=== PATIENT | female | born 1970 | race American Indian/Alaskan Native ===

== ENCOUNTER 2018-03-28 06:14 | Day surgery (SDC) | payer MEDICARE, MEDICAID ==
[2018-03-28] MEDS ORDERED: Absorbable Gelatin Sponge Size 100 ONE (07:21)
[2018-03-28] MEDS ORDERED: Bupivacaine 0.25% Inj(30mL) ONE (07:21)
[2018-03-28] MEDS ORDERED: Propofol 10 mg/ml Inj (20 ML) ONE (07:34)
[2018-03-28] MEDS ORDERED: Lidocaine 1% Inj (20ml) ONE (07:36)
[2018-03-28] MEDS ORDERED: CeFAZolin 1 gm in NS 100ml IVPB ONE (08:10)
[2018-03-28 08:17] VITALS: BMI 32.5
[2018-03-28] MEDS ORDERED: Sevoflurane - Inhalation Anesthetic Liq (250 ml) ONE (08:57)
[2018-03-28] MEDS ORDERED: Bupivacaine-Epi 0.25%-1:200,000 PF Inj IJ ONE (09:15)
[2018-03-28] MEDS ORDERED: Bupivacaine Liposomal Inj 20 ml ONE (09:17)
[2018-03-28] MEDS ORDERED: Bupivacaine Liposomal Inj 20 ml INJ ONE (09:24)
[2018-03-28] MEDS ORDERED: HYDROmorphone 0.5 mg/0.5 ml ISec IVP PRN (09:41)
--- NOTE | 2018-03-28 09:43 | PCM.SURG1 ---
Surgeon's Initial Post Op Note - Surgeon's Notes Surgeon: Dr. Alvarenga Test Engineer: Dr. West PGY3 Type of Anesthesia: General LMA Anesthesia Administered By: Dr. Zhu Pre-Operative Diagnosis: External Hemorrhoids, Internal Hemorrhoids Operative Findings: See Operative Dictation Post-Operative Diagnosis: Internal And External hemorrhoids Operation Performed: External and extensive internal hemorrhoidectomy, rigid proctosigmoidoscopy, exam under anesthesia Specimen/Specimens Removed: Hemorrhoidal tissue Estimated Blood Loss: EBL {In ML}: 10 Blood Products Given: N/A Drains Used: No Drains Post-Op Condition: Good Date of Surgery/Procedure: 03/28/18 Time of Surgery/Procedure: 09:44
[2018-03-28] MEDS ORDERED: [UNRECOGNIZED DRUG - OTHER] TP SCH (10:00)
[2018-03-28] MEDS ORDERED: DICLOFENAC SODIUM 100 GM TP SCH (10:00)
[2018-03-28] MEDS ORDERED: VIT E TP SCH (10:00)
[2018-03-28 10:56] VITALS: RESP 20; TEMP 97.8
--- NOTE | 2018-03-28 12:42 | OP ---
Copied To: Sanchez Alvarenga MD Attending MD: Sanchez Alvarenga MD PROCEDURE DATE: 03/28/2018 PREOPERATIVE DIAGNOSES: Extensive internal and external hemorrhoids, and rectal pain. POSTOPERATIVE DIAGNOSES: Extensive internal and external hemorrhoids, and rectal pain. PROCEDURES PERFORMED: 1. Rigid proctosigmoidoscopy up to 20 cm. 2. Extensive internal and external hemorrhoidectomy. SURGEON: Sanchez Alvarenga MD ORDER ENTRY: ANESTHESIOLOGIST: Dr. Zhu. ANESTHESIA: General endotracheal anesthesia. ESTIMATED BLOOD LOSS: Minimal. SPECIMENS: Internal and external hemorrhoids. DESCRIPTION OF PROCEDURE: Patient is a 48-year-old female with history of rectal pain and discomfort, with occasional bleeding. The patient was seen in the office and scheduled for the hemorrhoidectomy. Patient was brought to the operating room and placed on the operative table in the supine position. Patient was connected to EKG, blood pressure and pulse oximetry monitors. Patient then underwent general endotracheal anesthesia, and was prepped and draped in the usual sterile fashion. First, standard time-out procedure took place when everybody in the room agreed as to the patient's identity, diagnoses, and procedure to be performed. The operative course and the postoperative management was discussed with the OR team. First, a digital exam of the rectum was performed showing presence of internal and external hemorrhoids, and no other abnormalities palpable. The sphincter itself appeared to be fairly loose. I then proceeded with rigid sigmoidoscopy up to 20 cm. There was no significant lesions found in the rectum or the sigmoid colon. We then proceeded with hemorrhoidectomy. First, a half-rod retractor was placed, and the 8 o'clock position hemorrhoid was elevated with triangular clamp and ligated at its base. It was then excised with cautery and the mucosal edges were closed using 2-0 chromic stitch in a running locking fashion. Both the internal and external components of this hemorrhoid was removed. Next, a small hemorrhoid adjacent to it was also ligated with 2-0 chromic without excising it. Next, our attention was turned to the 5 o'clock position where another hemorrhoid was noted, and in the similar fashion was resected together with the external portion of the hemorrhoid and ligated the edges of the mucosa with 2-0 chromic stitch in a running locking fashion. Finally, we turned to the last hemorrhoid which was located at about 12 o'clock position, slightly off to the right, with ligating the base of that hemorrhoid and excising it, and ligating the edges of the fascia together with the external portion of the hemorrhoid. Once this was completed, the area was infiltrated with Marcaine and Exparel. There was excellent hemostasis. A Gelfoam packing was placed into the anal canal and sterile dressing was applied on top. The patient tolerated the procedure well and with no complications. Patient was awakened and transferred to the recovery room for further observation. Sanchez Alvarenga MD
[2018-03-28 14:21] VITALS: BP 125/76; PULSE 88; O2SAT 96
[2018-03-31] MEDS ORDERED: Ergocalciferol 50,000 Intl Units Cap PO SCH (10:00)
== END 2018-03-28 14:20 | disposition home or self-care (01) ==
LOC: SDS 06:14
PROVIDERS: ATTEND General Practice
DX: K64.4 Residual hemorrhoidal skin tags (principal); K64.8 Other hemorrhoids
CPT/HCPCS: 46260; 45300; 88304; J0690; J1170; J2405; J2704; J2765; J3010; J7120

== ENCOUNTER 2018-11-12 07:05 | Emergency (ER) | payer OTHER ==
[2018-11-12 07:09] VITALS: BMI 35.3
[2018-11-12 08:03] LABS: BASO # 0.03 K/mm3 (0.0-2.0); BASO % 0.5 % (0.0-3.0); EOS # 0.1 (0.0-0.7); HEMOGLOBIN 12.8 g/dL (12.0-16.0); LYMPH # 2.4 (1.2-3.4); LYMPH % 36.9 % (22.0-35.0); MEAN CELL VOLUME 95.5 fl (80.0-105.0); MEAN CORPUSCULAR HEMOGLOBIN 30.1 pg (25.0-35.0); MEAN CORPUSCULAR HGB CONC 31.5 g/dl (31.0-37.0); MEAN PLATELET VOLUME 8.9 fl (7.0-11.0); MONO # 0.3 (0.1-0.6); MONO % 4.9 % (1.0-6.0); RBC 4.25 10^6/uL (3.5-6.1); RED CELL DISTRIBUTION WIDTH 14.7 % (11.5-14.5); WHITE BLOOD COUNT 6.6 10^3/uL (4.5-11.0)
--- NOTE | 2018-11-12 08:12 | ED PDOC ---
Arrival/HPI - General Chief Complaint: Shortness Of Breath Historian: Patient - History of Present Illness Narrative History of Present Illness (Text): 11/12/18 07:31 Verenice Alcantara is a 48 year old female, with a past medical history of brain tumor removal, rheumatoid arthritis, osteoarthritis, childhood leukemia, diverticulosis, lupus, and neuropathy, who presents to the emergency department complaining of shortness of breath and trouble swallowing since early this morning. Patient informs waking up at 5 AM to smoke a cigarette when she felt short of breath. Patient appreciates one episode of non radiating sharp middle chest pain while in the emergency department. Patient used albuterol inhaler with improvement. Patient also informs of cold-like symptoms two weeks ago. Patient noted productive cough, wheezing, headache, and chills which have since resolved. Patient was seen by PMD who prescribed nebulizer treatment and albuterol inhaler. Patient denies any fevers, chills, headache, dizziness, dyspnea on exertion, cough, diaphoresis, abdominal pain, nausea, vomiting, diarrhea, back pain, neck pain, or any other complaint. Time/Duration: 1-3 hours Symptom Onset: Sudden Symptom Course: Unchanged Activities at Onset: Light Context: Home Past Medical History - Provider Review Nursing Documentation Reviewed: Yes - Infectious Disease Hx of Infectious Diseases: None - Tetanus Immunization Tetanus Immunization: Unknown - Cardiac Hx Pacemaker: No - Pulmonary Hx Respiratory Disorders: Yes - Neurological Hx Paralysis: No - Endocrine/Metabolic Hx Hypothyroidism: Yes - Hematological/Oncological Hx Blood Transfusions: Yes (1981) Hx Blood Transfusion Reaction: No - Musculoskeletal/Rheumatological Hx Musculoskeletal Disorders: Yes (RA) - Psychiatric Hx Emotional Abuse: No Hx Physical Abuse: No Hx Substance Use: No - Past Surgical History Past Surgical History: No Previous - Surgical History Hx Section: Yes Hx Orthopedic Surgery: Yes (03/01/16) - Anesthesia Hx Anesthesia Reactions: No Hx Malignant Hyperthermia: No - Suicidal Assessment Feels Threatened In Home Enviroment: No Family/Social History - Physician Review Nursing Documentation Reviewed: Yes Family/Social History: Unknown Family HX Smoking Status: Heavy Smoker > 10 Cigarettes Daily Hx Alcohol Use: No Hx Substance Use: No Hx Substance Use Treatment: No Allergies/Home Meds Allergies/Adverse Reactions: Allergies acetaminophen [From Percocet] Allergy (Severe, Verified 03/20/18 10:14) ITCHING aspirin Allergy (Severe, Verified 03/20/18 10:14) SHORTNESS OF BREATH oxycodone HCl [From Percocet] Allergy (Severe, Verified 03/20/18 10:14) ITCHING Home Medications: Home Meds Medication Instructions Recorded Confirmed Sertraline HCl [Zoloft] 150 mg PO DAILY 05/19/15 03/28/18 Gabapentin [Neurontin] 300 mg PO TID 06/27/15 03/28/18 clonazePAM [clonAZEPAM] 0.5 mg PO HS PRN 03/17/16 03/28/18 Cholecalciferol (Vitamin D3) 50,000 unit PO SUN 03/20/18 03/28/18 [Vitamin D3] Cyclobenzaprine [Cyclobenzaprine 10 mg PO TID PRN 03/20/18 03/28/18 HCl] Diclofenac Sodium [Voltaren] 100 gm TP DAILY 03/20/18 03/28/18 Docusate [Colace] 100 mg PO BID 03/20/18 03/28/18 Vit A Palm/Vit E/Safflower Oil 1 applic TP DAILY 03/20/18 03/28/18 [[employer] Blend Vitamins E & A 1000 [id number] I] traMADol [Ultram] 1 tab PO Q6 PRN 03/28/18 03/28/18 Review of Systems - Physician Review All systems were reviewed & negative as marked: Yes - Review of Systems Constitutional: absent: Fevers, Other (chills) ENT: Other (trouble swallowing) Respiratory: SOB. absent: Cough Cardiovascular: Chest Pain (middle of chest) Gastrointestinal: absent: Abdominal Pain, Diarrhea, Nausea, Vomiting Genitourinary Female: absent: Dysuria, Hematuria, Urine Output Changes Musculoskeletal: absent: Back Pain, Neck Pain Neurological: absent: Headache, Dizziness Endocrine: absent: Diaphoresis Physical Exam Vital Signs Reviewed: Yes Vital Signs Temp Pulse Resp BP Pulse Ox 11/12/18 07:19 97 11/12/18 07:10 97.7 F 104 H 16 107/83 97 Temperature: Afebrile Blood Pressure: Normal Pulse: Tachycardic Respiratory Rate: Normal Appearance: Positive for: Well-Appearing, Non-Toxic, Comfortable Pain Distress: None Mental Status: Positive for: Alert and Oriented X 3 - Systems Exam Head: Present: Atraumatic, Normocephalic Pupils: Present: PERRL Extroacular Muscles: Present: EOMI Conjunctiva: Present: Normal Mouth: Present: Moist Mucous Membranes Pharnyx: No: ERYTHEMA, EXUDATE, Peritonsilar Swelling, Uvular Deviation, Muffled/Hoarse Voice, Soft Palate/Uvular Edema Neck: Present: Normal Range of Motion Respiratory/Chest: Present: Clear to Auscultation, Good Air Exchange. No: Respiratory Distress, Accessory Muscle Use Cardiovascular: Present: Regular Rate and Rhythm, Normal S1, S2. No: Murmurs Abdomen: Present: Normal Bowel Sounds. No: Tenderness, Distention, Peritoneal Signs, Rebound, Guarding Back: Present: Normal Inspection Upper Extremity: Present: Normal Inspection. No: Cyanosis, Edema Lower Extremity: Present: Normal Inspection. No: Edema Neurological: Present: GCS=15, CN II-XII Intact, Speech Normal, Motor Func Grossly Intact, Normal Sensory Function Skin: Present: Warm, Dry, Normal Color. No: Rashes Psychiatric: Present: Alert, Oriented x 3, Normal Insight, Normal Concentration Medical Decision Making ED Course and Treatment: 11/12/18 07:31 Impression: Patient is a 48 year old male with history of rheumatoid and osteoarthritis, neuropathy, and brain tumor removal who presents to the emergency department for shortness of breath and trouble swallowing since earlier this morning. Patient informs going outside to smoke a cigarette when she felt shortness of breath. Exam is unremarkable. Plan: -- EKG -- Chest X-Ray -- POC Urine Test -- Labs -- Reassess and disposition Prior Visits: Notes and results from previous visits were reviewed. Progress Notes: Heart score = 2 (low risk). CXR interpreted by rad as possible developing pna in rll. Results of w/u d/w patient. Plan d/c home to f/u w/pcp and Rx for abx. Patient agreeable w/POC. - RAD Interpretation Narrative RAD Interpretations (Text): 11/12/18 08:28 Chest X-Ray shows: IMPRESSION: Questionable early right lower lobe infiltrate and small right pleural effusion. Follow-up advised. Radiology Orders: 11/12/18 07:31 CHEST TWO VIEWS (PA/LAT) [RAD] Stat Junior Media Buyer: Radiologist - EKG Interpretation EKG Interpretation (Text): 11/12/18 08:46 Reviewed EKG, shows: NSR at 98 BPM. RAD. Normal intervals, no ST elevations or depressions. Interpreted by ED Physician: Yes Type: 12 lead EKG - Scribe Statement The provider has reviewed the documentation as recorded by the Scribe Benjamin Senior All medical record entries made by the Scribe were at my direction and personally dictated by me. I have reviewed the chart and agree that the record accurately reflects my personal performance of the history, physical exam, medical decision making, and the department course for this patient. I have also personally directed, reviewed, and agree with the discharge instructions and disposition. Disposition/Present on Arrival - Present on Arrival Any Indicators Present on Arrival: No History of DVT/PE: No History of Uncontrolled Diabetes: No Urinary Catheter: No History of Decub. Ulcer: No History Surgical Site Infection Following: None - Disposition Have Diagnosis and Disposition been Completed?: Yes Diagnosis: Pneumonia Disposition: HOME/ ROUTINE Disposition Time: 08:50 Patient Plan: Discharge Condition: GOOD Discharge Instructions (ExitCare): Community-Acquired Pneumonia, Adult (DC) Additional Instructions: VERENICE ALCANTARA, thank you for letting us take care of you today. Your provider was Anayeli Pardo MD and you were treated for BREATHING PROBLEM. The emergency medical care you received today was directed at your acute symptoms. If you were prescribed any medication, please fill it and take as directed. It may take several days for your symptoms to resolve. Return to the Emergency Department if your symptoms worsen, do not improve, or if you have any other problems. Please contact your doctor in 2-3 days for a follow up appointment. Bring any paperwork you were given at discharge with you along with any medications you are taking to your follow up visit. Our treatment cannot replace ongoing medical care by a primary care provider outside of the emergency department. Thank you for allowing the [facility] team to be part of your care today. Prescriptions: Azithromycin [Zithromax] 250 mg PO DAILY #6 tab Referrals: Elvira Martínez DO [Primary Care Provider] - Follow up with primary Forms: [employer] (Omani), WORK NOTE
[2018-11-12 08:13] LABS: BLOOD UREA NITROGEN 9 mg/dL (7-21); CALCIUM 9.3 mg/dL (8.4-10.5); GFR NON-AFRICAN AMERICAN > 60
[2018-11-12 08:24] LABS: TROPONIN I < 0.01 ng/mL
--- NOTE | 2018-11-12 08:32 | RAD ---
Date of service: 11/12/2018 HISTORY: sob COMPARISON: 07/30/2017 TECHNIQUE: Chest PA and lateral views FINDINGS: LUNGS: Questionable right lower lobe opacity. Possible pneumonia. Follow-up to clearing advised. No other abnormal opacity. PLEURA: Possible very small right pleural effusion seen only in the lateral view, with blunting of the costophrenic sulcus. Left costophrenic sulcus/angle clear. CARDIOVASCULAR: No aortic atherosclerotic calcification present. Normal cardiac size. No pulmonary vascular congestion. OSSEOUS STRUCTURES: No significant abnormalities. VISUALIZED UPPER ABDOMEN: Normal. OTHER FINDINGS: None. IMPRESSION: Questionable early right lower lobe infiltrate and small right pleural effusion. Follow-up advised.
[2018-11-12 09:07] VITALS: BP 130/73; PULSE 76; RESP 19; TEMP 98.2; O2SAT 96
--- NOTE | 2018-11-12 17:47 | CARD ---
APPROVED REPORT Date of service: 11/12/2018 EKG Measurement Heart [id number] <Conclusion> Normal sinus rhythm Right axis deviation Abnormal ECG
== END 2018-11-12 09:07 | disposition home or self-care (01) ==
LOC: ED 07:05
DX: J18.9 Pneumonia, unspecified organism (principal); M32.9 Systemic lupus erythematosus, unspecified; M06.9 Rheumatoid arthritis, unspecified; F17.210 Nicotine dependence, cigarettes, uncomplicated

== ENCOUNTER 2019-01-10 00:09 | Emergency (ER) | payer MEDICARE, OTHER ==
[2019-01-10 00:09] VITALS: BMI 35.3
--- NOTE | 2019-01-10 00:50 | ED PDOC ---
Arrival/HPI - General Chief Complaint: Palpitations Time Seen by Provider: 01/10/19 00:33 Historian: Patient - History of Present Illness Narrative History of Present Illness (Text): 01/10/19 00:51 48 year old female, with a past medical history of brain tumor removal, rheumatoid arthritis, osteoarthritis, childhood leukemia, diverticulosis, lupus, and neuropathy, who presents to the emergency department complaining of palpita tions. Patient informs she began feeling a weird sensation in her chest, as well as some associated dizziness, about an hour prior to arrival. Patient informs she has a cardiology appointment on 01/16/19 for medical clearance due to an upcoming dental procedure. Patient denies any fevers, chills, headache, cough, abdominal pain, nausea, vomiting, diarrhea, back pain, or any other complaints. PMD: Dr Martínez Time/Duration: Prior to Arrival Symptom Onset: Gradual Symptom Course: Unchanged Activities at Onset: Light Context: Home Past Medical History - Provider Review Nursing Documentation Reviewed: Yes - Infectious Disease Hx of Infectious Diseases: None - Tetanus Immunization Tetanus Immunization: Unknown - Cardiac Hx Pacemaker: No - Pulmonary Hx Respiratory Disorders: Yes - Neurological Hx Paralysis: No - Endocrine/Metabolic Hx Hypothyroidism: Yes - Hematological/Oncological Hx Blood Transfusions: Yes (1981) Hx Blood Transfusion Reaction: No - Musculoskeletal/Rheumatological Hx Musculoskeletal Disorders: Yes (RA) - Psychiatric Hx Emotional Abuse: No Hx Physical Abuse: No Hx Substance Use: No - Past Surgical History Past Surgical History: No Previous - Surgical History Hx Section: Yes Hx Orthopedic Surgery: Yes (03/01/16) - Anesthesia Hx Anesthesia Reactions: No Hx Malignant Hyperthermia: No - Suicidal Assessment Feels Threatened In Home Enviroment: No Family/Social History - Physician Review Nursing Documentation Reviewed: Yes Family/Social History: No Known Family HX Smoking Status: Heavy Smoker > 10 Cigarettes Daily Hx Alcohol Use: No Hx Substance Use: No Hx Substance Use Treatment: No Allergies/Home Meds Allergies/Adverse Reactions: Allergies acetaminophen [From Percocet] Allergy (Severe, Verified 03/20/18 10:14) ITCHING aspirin Allergy (Severe, Verified 03/20/18 10:14) SHORTNESS OF BREATH oxycodone HCl [From Percocet] Allergy (Severe, Verified 03/20/18 10:14) ITCHING Home Medications: Home Meds Medication Instructions Recorded Confirmed Sertraline HCl [Zoloft] 150 mg PO DAILY 05/19/15 03/28/18 Gabapentin [Neurontin] 300 mg PO TID 06/27/15 03/28/18 clonazePAM [clonAZEPAM] 0.5 mg PO HS PRN 03/17/16 03/28/18 Cholecalciferol (Vitamin D3) 50,000 unit PO SUN 03/20/18 03/28/18 [Vitamin D3] Cyclobenzaprine [Cyclobenzaprine 10 mg PO TID PRN 03/20/18 03/28/18 HCl] Diclofenac Sodium [Voltaren] 100 gm TP DAILY 03/20/18 03/28/18 Docusate [Colace] 100 mg PO BID 03/20/18 03/28/18 Vit A Palm/Vit E/Safflower Oil 1 applic TP DAILY 03/20/18 03/28/18 [[employer]end Vitamins E & A 1000 [id number] I] traMADol [Ultram] 1 tab PO Q6 PRN 03/28/18 03/28/18 Review of Systems - Physician Review All systems were reviewed & negative as marked: Yes - Review of Systems Constitutional: absent: Fevers, Night Sweats Respiratory: SOB Cardiovascular: Palpitations Gastrointestinal: absent: Abdominal Pain, Diarrhea, Nausea, Vomiting Musculoskeletal: absent: Back Pain Neurological: Dizziness. absent: Headache Physical Exam Vital Signs Reviewed: Yes Temperature: Afebrile Blood Pressure: Normal Pulse: Tachycardic Respiratory Rate: Normal Appearance: Positive for: Well-Appearing, Non-Toxic, Comfortable Pain Distress: None Mental Status: Positive for: Alert and Oriented X 3 - Systems Exam Head: Present: Atraumatic, Normocephalic Pupils: Present: PERRL Extroacular Muscles: Present: EOMI Conjunctiva: Present: Normal Mouth: Present: Moist Mucous Membranes Neck: Present: Normal Range of Motion Respiratory/Chest: Present: Clear to Auscultation, Good Air Exchange. No: Respiratory Distress, Accessory Muscle Use Cardiovascular: Present: Regular Rate and Rhythm, Normal S1, S2. No: Murmurs Abdomen: No: Tenderness, Distention, Peritoneal Signs Back: Present: Normal Inspection Upper Extremity: Present: Normal Inspection. No: Cyanosis, Edema Lower Extremity: Present: Normal Inspection. No: Edema Neurological: Present: GCS=15, CN II-XII Intact, Speech Normal Skin: Present: Warm, Dry, Normal Color. No: Rashes Psychiatric: Present: Alert, Oriented x 3, Normal Insight, Normal Concentration Medical Decision Making ED Course and Treatment: 01/10/19 01:09 Impression: 48 year old female presents with palpitations and dizziness. Plan: -- EKG -- Cardiac Iso, CMP, Mg, t3, tsh -- CBC -- Chest X-ray -- Reassess and disposition Prior Visits: Notes and results from previous visits were reviewed. Progress Notes: 01/10/19 01:15 EKG reviewed by me, shows Normal sinus rhythm @ 93bpm Normal axis, Normal intervals - RAD Interpretation Radiology Orders: 01/10/19 00:34 CHEST PORTABLE [RAD] Stat - Scribe Statement The provider has reviewed the documentation as recorded by the Scribe Reji Ray All medical record entries made by the Scribe were at my direction and personally dictated by me. I have reviewed the chart and agree that the record accurately reflects my personal performance of the history, physical exam, medical decision making, and the department course for this patient. I have also personally directed, reviewed, and agree with the discharge instructions and disposition. Disposition/Present on Arrival - Present on Arrival Any Indicators Present on Arrival: No History of DVT/PE: No History of Uncontrolled Diabetes: No Urinary Catheter: No History of Decub. Ulcer: No History Surgical Site Infection Following: None - Disposition Have Diagnosis and Disposition been Completed?: Yes Diagnosis: Palpitations Disposition: HOME/ ROUTINE Disposition Time: 02:30 Condition: GOOD Discharge Instructions (ExitCare): Palpitations (DC) Additional Instructions: VERENICE HINKLE, thank you for letting us take care of you today. The emergency medical care you received today was directed at your acute symptoms. If you were prescribed any medication, please fill it and take as directed. It may take several days for your symptoms to resolve. Return to the Emergency Department if your symptoms worsen, do not improve, or if you have any other problems. Please contact your doctor or call one of the physicians/clinics you have been referred to that are listed on the Patient Visit Information form that is included in your discharge packet. Bring any paperwork you were given at discharge with you along with any medications you are taking to your follow up visit. Our treatment cannot replace ongoing medical care by a primary care provider outside of the emergency department. Thank you for allowing the [facility] team to be part of your care today. Follow up with your primary care doctor in 2-3 days for re-evaluation and further management. Referrals: Elvira Martínez DO [Primary Care Provider] - Follow up with primary Forms: [email or web address] (Tongan)
[2019-01-10 00:55] VITALS: RESP 18; TEMP 98.2
[2019-01-10 02:18] LABS: BASO # 0.02 K/mm3 (0.0-2.0); BASO % 0.3 % (0.0-3.0); EOS # 0.1 (0.0-0.7); EOS % 1.4 % (1.5-5.0); HEMOGLOBIN 13.9 g/dL (12.0-16.0); LYMPH # 2.8 (1.2-3.4); LYMPH % 35.2 % (22.0-35.0); MEAN CELL VOLUME 93.5 fl (80.0-105.0); MEAN CORPUSCULAR HEMOGLOBIN 30.2 pg (25.0-35.0); MEAN CORPUSCULAR HGB CONC 32.3 g/dl (31.0-37.0); MEAN PLATELET VOLUME 9.4 fl (7.0-11.0); MONO # 0.4 (0.1-0.6); MONO % 4.8 % (1.0-6.0); RBC 4.61 10^6/uL (3.5-6.1); RED CELL DISTRIBUTION WIDTH 14.9 % (11.5-14.5)
[2019-01-10 02:29] LABS: ALB/GLOB RATIO 1.3 (1.1-1.8); ALBUMIN 4.4 g/dL (3.0-4.8); ALT/SGPT 15 U/L (7-56); AST/SGOT 19 U/L (14-36); BLOOD UREA NITROGEN 12 mg/dL (7-21); CALCIUM 9.7 mg/dL (8.4-10.5); GFR NON-AFRICAN AMERICAN > 60
[2019-01-10 02:41] LABS: TROPONIN I < 0.01 ng/mL
[2019-01-10 03:00] VITALS: BP 127/87; PULSE 88; O2SAT 94
[2019-01-10 05:10] LABS: T3 1.28 ng/mL (0.97-1.69)
--- NOTE | 2019-01-10 11:06 | RAD ---
Date of service: 01/10/2019 HISTORY: chest pain COMPARISON: 11/12/2018. FINDINGS: LUNGS: The lungs are well inflated and clear. PLEURA: No pleural effusions or pneumothorax. CARDIOVASCULAR: The heart is normal in size. No aortic atherosclerotic calcifications present. OSSEOUS STRUCTURES: Within normal limits for the patient's age. VISUALIZED UPPER ABDOMEN: Normal. OTHER FINDINGS: None. IMPRESSION: No active pulmonary disease.
--- NOTE | 2019-01-10 11:39 | CARD ---
APPROVED REPORT Date of service: 01/10/2019 EKG Measurement Heart [id number] <Conclusion> Normal sinus rhythm Right axis deviation Abnormal ECG
== END 2019-01-10 04:10 | disposition home or self-care (01) ==
LOC: ED 00:09
DX: R00.2 Palpitations (principal); E03.9 Hypothyroidism, unspecified; F17.210 Nicotine dependence, cigarettes, uncomplicated; M06.9 Rheumatoid arthritis, unspecified; M32.9 Systemic lupus erythematosus, unspecified